=== PATIENT | female | born 1980 | race Caucasian/White ===

== ENCOUNTER → 2023-08-10 | Outpatient (CLI) | payer BC, SELFPAY ==
--- NOTE | 2023-08-10 16:34 | MRI_ITS ---
EXAM: MR LUMBAR SPINE WITHOUT INTRAVENOUS CONTRAST CLINICAL INDICATION: SPINAL STENOSIS, pain wrapping into L ribs TECHNIQUE: Multiplanar and multisequence MR images of the lumbar spine without intravenous contrast. COMPARISON: No relevant prior studies available. FINDINGS: VERTEBRAE: 6 lumbar vertebral bodies are noted. SPINAL CORD: Normal. Normal position and signal intensity of the conus medullaris. SOFT TISSUES: Normal. DISCS/SPINAL CANAL/NEURAL FORAMINA: L1-L2: Normal. Normal disc height and morphology. Normal spinal canal and lateral recesses. Normal neuroforamina. L2-L3: Normal. Normal disc height and morphology. Normal spinal canal and lateral recesses. Normal neuroforamina. L3-L4: Normal. Normal disc height and morphology. Normal spinal canal and lateral recesses. Normal neuroforamina. L4-L5: Normal. Normal disc height and morphology. Normal spinal canal and lateral recesses. Normal neuroforamina. L5-L6: Normal. Normal disc height and morphology. Normal spinal canal and lateral recesses. Normal neuroforamina. L6-S1: Normal. Normal disc height and morphology. Normal spinal canal and lateral recesses. Normal neuroforamina. MRI/Spine Lumbar (Routine) IMPRESSION: No acute findings in the lumbar spine. 6 lumbar vertebral bodies. Electronically Signed: Dimitry Purdy MD at 15:29 EDT ,
== END | disposition home or self-care (01) ==
PROVIDERS: PCP Physician Assistant; Referring Provider Orthopaedic Surgery; Visit Provider Orthopaedic Surgery
DX: M48.061 Spinal stenosis, lumbar region without neurogenic claudication (principal); M47.896 Other spondylosis, lumbar region; M51.36 Other intervertebral disc degeneration, lumbar region
CPT/HCPCS: 72148

== ENCOUNTER → 2023-08-31 | Outpatient (CLI) | payer BC, SELFPAY ==
--- NOTE | 2023-08-31 14:25 | US_ITS ---
EXAM: US SOFT TISSUES HEAD AND NECK, THYROID CLINICAL INDICATION: NODULE TECHNIQUE: Valenzuela scale and color doppler imaging was performed of the thyroid gland. COMPARISON: No relevant prior studies available. FINDINGS: LEFT THYROID LOBE: Left thyroid lobe measures 4.6 x 1.1 x 1.3 cm. 3. 4 mm colloid cysts are noted. Thyroid echogenicity is otherwise uniform and normal. RIGHT THYROID LOBE: Right thyroid lobe measures 3.5 x 1.4 x 1.2 cm. 16 mm spongiform nodule of the right thyroid lobe is wider than tall, well-defined and without microcalcification. TI-RADS points: 2. TI-RADS category: TR2. This nodule is not suspicious and no FNA or follow-up is necessary. ISTHMUS: Isthmus measures 1.5 mm in AP dimension. No thyroid nodules are present. US/Thyroid IMPRESSION: 16mm spongiform right thyroid nodule with TR score of 2. No follow-up indicated. Normal left thyroid gland. Electronically Signed: Dimitry Purdy MD at 15:01 EDT ,
== END | disposition home or self-care (01) ==
PROVIDERS: PCP Physician Assistant; Referring Provider Physician Assistant; Visit Provider Physician Assistant
DX: R59.0 Localized enlarged lymph nodes (principal); E04.1 Nontoxic single thyroid nodule
CPT/HCPCS: 76536

== ENCOUNTER 2023-12-02 16:38 | Emergency (ER) | payer BC, SELFPAY ==
[2023-12-02 16:38] VITALS: BP 148/83; PULSE 71; RESP 16; TEMP 35.8; O2SAT 100; BMI 30.2
--- NOTE | 2023-12-02 17:34 | CT_ITS ---
EXAM: CT ABDOMEN AND PELVIS WITH INTRAVENOUS CONTRAST CLINICAL INDICATION: ruq pain TECHNIQUE: Helically acquired images were obtained of the abdomen and pelvis with intravenous contrast. This CT exam was performed using one or more of the following dose reduction techniques: automated exposure control, adjustment of the mA and/or kV according to patient size, and/or use of iterative reconstruction technique. CONTRAST: IV 75mL [id number] COMPARISON: MRI lumbar spine, 08/10/2023. FINDINGS: LOWER THORAX: Bibasilar pulmonary opacities may be atelectasis or pneumonia. No cardiomegaly. No significant pericardial effusion. ABDOMEN: LIVER: Fatty infiltration of the liver at the falciform ligament and small cysts within the left hepatic lobe for which no follow-up is indicated. Mild hepatomegaly. GALLBLADDER AND BILE DUCTS: The gallbladder is decompressed. No secondary signs of cholecystitis. No intra- or extrahepatic biliary ductal dilation. PANCREAS: No significant abnormality. No focal cystic or solid mass. SPLEEN: No significant abnormality. Normal size without focal cystic or solid mass. ADRENALS: No significant abnormality. No nodules. KIDNEYS AND URETERS: No significant abnormality. Normal renal size and position. No hydronephrosis. STOMACH AND BOWEL: No significant abnormality. No stomach or bowel distention. No focal inflammatory change. PELVIS: APPENDIX: A normal appendix is identified in the right lower quadrant. No secondary signs of appendicitis. BLADDER: No significant abnormality. REPRODUCTIVE: Status post hysterectomy. ABDOMEN and PELVIS: INTRAPERITONEAL SPACE: No significant abnormality. No ascites or other fluid collection. No free air. BONES/JOINTS: See above. SOFT TISSUES: Small fat-containing umbilical hernia. VASCULATURE: No significant abnormality. Abdominal aorta is non-dilated. LYMPH NODES: No significant abnormality. No enlarged lymph nodes. CT/Abdomen/Pelvis W IV Cont ONLY IMPRESSION: 1. Bibasilar pulmonary opacities may be atelectasis or pneumonia. 2. Fatty infiltration of the liver at the falciform ligament and small cysts within the left hepatic lobe for which no follow-up is indicated. 3. Mild hepatomegaly. 4. No evidence of cholecystitis and no evidence of appendicitis. 5. Status post hysterectomy. Electronically Signed: Jorge Alberto Pyle DO at 18:32 EDT ,
--- NOTE | 2023-12-02 17:35 | EDS_ITS ---
HPI HPI - GI History of Present Illness Chief Complaint: Abd Pain Detail of Chief Complaint: Right upper quadrant abdominal pain intermittently for the last 2 weeks. Informant: patient Abdominal Pain/Flank Pain Onset: Weeks Context: Gradual Onset Timing: Intermittent Location: RUQ Current Severity: Mild Maximum Severity: Mild Worsened by: Food Relieved by: Nothing Nausea/Vomiting/Emesis GI Symptom: Negative for Nausea or Vomiting Diarrhea/Melena/Hematochezia GI Symptom: Negative for Diarrhea, Melena or Hematochezia Associated Symptoms Associated Symptoms: Negative for Dysuria, Frequency or Hematuria Narrative Narrative: 43-year-old female no seen past medical history. Prior hysterectomy and C- sections x 2. States 2 weeks ago she had a 2 to 3-day history of right upper quadrant abdominal pain. Denied any other symptoms. Went away. She was not evaluated for. For the last 2 to 3 days she has had the same pain. Right upper quadrant underneath the rib cage. Denies nausea, vomiting, diarrhea or fever. No dysuria. Says if she eats sausage it makes the pain worse. Her sister had to have her gallbladder out. Prior similar symptoms: Yes Recent Illness/Hospitalization: No PFSH PFS Medical History Physical exam, pre-employment Family history of Shelia thyroiditis Abnormal results of thyroid function studies History of gestational diabetes Home Medications ?Medication ?Instructions ?Recorded ?Last Taken ?Type omeprazole 20 mg capsule,delayed 40 mg PO DAILY 01/17/16 01/24/16 10:00 History release sertraline 50 mg tablet 50 mg PO QHS 01/17/16 Unknown History estradiol 1 mg tablet 2 mg (2 x 1 mg) PO DAILY #100 tabs 01/24/16 Unknown Rx albuterol sulfate 90 mcg/actuation 2 puff inhalation Q6H PRN 05/08/19 Unknown History aerosol inhaler levothyroxine 75 mcg tablet 75 mcg PO DAILY #90 tabs 05/08/19 Unknown Rx Allergy/AdvReac Type Severity Reaction Status Date / Time Penicillins Allergy Swelling Verified 12/02/23 16:39 Surgical History H/O total hysterectomy Social History Smoking Status: Former smoker ROS ROS ED ROS Narrative Right upper quadrant abdominal pain denies other complaints. Constitutional Constitutional ED: Denies chills or fever(s) ENT ENT ED: Denies ear pain Cardiovascular Cardiovascular: Denies chest pain Respiratory/Chest Respiratory/Chest: Denies cough Gastrointestinal Gastrointestinal: Reports abdominal pain; Denies constipation, diarrhea, melena, nausea or vomiting Genitourinary Genitourinary ED: Denies dysuria or hematuria Musculoskeletal Musculoskeletal: Denies arthralgias Integumentary Denies abscess Neurologic Neurologic: Denies headache(s) Psychiatric Psychiatric: Denies anxiety Endocrine Endocrinology: Denies polydipsia Hematologic/Lymphatic Hematologic/Lymphatic: Denies easy bleeding Allergic/Immunologic Allergic/Immunologic ED: Denies mouth swelling or tongue swelling EXAM Physical Exam Narrative Exam Narrative: 43-year-old female vital signs are stable afebrile. H EENT exam unremarkable. Neck nontender. Lungs clear. Heart regular rhythm rate about 70 no murmur. Chest wall ribs nontender. Abdomen soft nondistended normal bowel sounds no peritoneal signs. Hide in her right upper quadrant underneath her right rib cage she is mildly tender. No Covarrubias sign. No McBurney's point tenderness the left side her abdomen is completely nontender. No hernia or mass. No distention. Moving all 4 extremities. Nontender no edema. Back nontender. She is awake and alert no focal motor deficits. Const Vital Signs: 12/02/23 16:38 12/02/23 18:38 Temperature 96.5 F L Temperature Source Temporal Pulse Rate 71 71 Respiratory Rate 16 18 Blood Pressure 148/83 H 139/69 H Blood Pressure Mean 104 92 Pulse Ox 100 95 Oxygen Delivery Method Room Air Room Air Positive well nourished and well developed; Negative for cachectic, contractures or unkempt General Appearance ED: well developed and NAD; Negative for unkempt, cachectic, contractures or pallor Nutritional Appearance: Negative for cachectic HEENT Reports moist mucous membranes normocephalic and atraumatic Eyes PERRL and EOMs intact bilaterally General Eye ED: Negative for pale conjunctiva Neck no lymphadenopathy, supple and no JVD Resp normal respiratory effort and clear to auscultation bilaterally Cardio regular rate, regular rhythm, S1 normal heart sound, S2 normal heart sound and no murmurs Rate: Negative for bradycardia or tachycardic Rhythm: Negative for abnormal rhythm GI non-distended and no masses; Negative for non-tender Auscultation: normoactive bowel sounds Palpation: soft and tender; Negative for guarding, rigid, hernia, mass or rebound tenderness present Back/Spine no CVA tenderness General Back: Negative for CVA tenderness Cervical Spine: Negative for cervical spine tenderness Thoracic Spine / Upper Back: Negative for thoracic spinal tenderness Lumbar Spine / Lower Back: Negative for lumbar spinal tenderness Extremity full ROM General Extremety ED: Negative for edema or tenderness General Extremity: Negative for edema Neuro CN's II-XII intact bilaterally and moves all extremities Sensorium / Orientation: alert, oriented to person, oriented to place and oriented to time; Negative for orientation impaired or confused Motor Exam: strength 5/5 throughout Psych mental status grossly normal and thought process normal Appearance: Negative for unkempt Attitude: No agitated Mood & Affect: Negative for depressed, anxious or tearful Skin no wounds General Skin Exam: Negative for jaundice or pallor Lesions: no lesions Rashes: no rashes Trauma: Negative for abrasion Nails: Negative for discolored MDM MDM MDM Narrative Medical decision making narrative: 43-year-old female with right upper quadrant abdominal pain intermittently for 2 weeks. Suspect gallbladder disease. CAT scan labs are pending. She does not want radiating currently for pain or nausea. Repeat exam patient is doing well at 8:25 PM. Abdomen is benign. We went over her test results her labs are normal her CAT scan did not show anything specific. She be discharged home. Follow-up with primary care physician [facility] to get an ultrasound of her gallbladder. She knows to return if she is feeling worse. History & Record Review Discussion w/independent historian: Patient Additional record(s) reviewed:: Prior inpatient record, Prior outpatient record, Prior ED visit and Prior labs Lab Data Attestation: I reviewed the patient's lab results. Lab results narrative: CBC normal. White count of 9. H&H 12 and 37. Platelets 373. Electrolytes shows potassium 3.4. 7. Normal BUN and creatinine. Glucose 101. Liver enzymes completely normal. Lipase 43. CAT scan showed no signs of gallstones or acute cholecystitis or any specific cause for her discomfort. Labs: Laboratory Results - last 24 hr 12/02/23 16:50 WBC 9.6 RBC 4.09 L Hgb 12.6 Hct 37.8 MCV 92.4 MCH 30.8 MCHC 33.3 RDW Std Deviation 40.9 RDW Coeff of Magdalena 12.1 Plt Count 373 MPV 10.4 Immature Gran % (Auto) 0.400 Neut % (Auto) 60.8 Lymph % (Auto) 26.1 [place] % (Auto) 9.4 Eos % (Auto) 2.8 Baso % (Auto) 0.5 Absolute Neuts (auto) 5.9 Absolute Lymphs (auto) 2.51 Nucleated RBC % 0 Sodium 141 Potassium 3.4 L Chloride 108 H Carbon Dioxide 26.0 Anion Gap 7 BUN 9 Creatinine 0.68 Estim Creat Clear Calc 99.10 Est GFR (MDRD) Af Amer 119 Est GFR (MDRD) Non-Af 98 BUN/Creatinine Ratio 13.1 Glucose 101 Calcium 8.7 Total Bilirubin 0.50 AST 21 ALT 26 Alkaline Phosphatase 97 Total Protein 7.2 Albumin 3.4 Globulin 3.8 Albumin/Globulin Ratio 0.9 Lipase 43 Radiography Diagnostic Testing: Clinical Impression(s) from Imaging Studies Abdomen/Pelvis CT 12/02/23 17:34 IMPRESSION: 1. Bibasilar pulmonary opacities may be atelectasis or pneumonia. 2. Fatty infiltration of the liver at the falciform ligament and small cysts within the left hepatic lobe for which no follow-up is indicated. 3. Mild hepatomegaly. 4. No evidence of cholecystitis and no evidence of appendicitis. 5. Status post hysterectomy. Electronically Signed: Jorge Alberto Pyle DO at 18:32 EDT , Discharge Plan Triage Chief Complaint: Abd Pain ED Provider: Bishnu Barney Dx/Rx/DC Orders Clinical Impression: Abdominal pain Instructions: ED Abdominal Pain Unkn Cause Fem Prescriptions: No Action albuterol sulfate 90 mcg/actuation HFA aerosol inhaler 2 puff INHALATION Q6H PRN levothyroxine 75 mcg tablet 75 mcg PO DAILY Qty: 90 1RF omeprazole 20 MG capsule 40 mg PO DAILY Patient Comments: GERD sertraline 50 MG tablet 50 mg PO QHS Patient Comments: Depression/Anxiety estradiol 1 MG tablet 2 mg PO DAILY Qty: 100 4RF Patient Comments: Estrogen Primary Care Provider: Tyesha Hong Referrals: Tyesha Hong, JASON [Primary Care Provider] - As soon as possible Activity Restrictions/Additional Instructions: Your CAT scan and labs were unremarkable today. This still could be your gallbladder. Follow-up your primary care physician they can do an ultrasound your gallbladder. Tylenol and/or Motrin for discomfort. Return if severe pain, fever or intractable vomiting. Print Language: Maldivian Disposition Disposition: Home, Self Care
[2023-12-02 17:47] LABS: Absolute Lymphocyte Count 2.51 X10^3/uL (0.83-4.51); Absolute Neutrophil Count 5.9 X10^3/uL (2.0-7.7); Basophil# 0.05 X10^3/uL; Basophil% 0.5 % (0-1); Eosinophil# 0.27 X10^3/uL; Eosinophils% 2.8 % (0-5); Hematocrit 37.8 % (37-47); Hemoglobin 12.6 g/dL (12.0-15.0); Lymphocyte # 2.51 X10^3/ul (0.83-4.51); Lymphocyte % 26.1 % (19-41); Mean Corp Hgb Conc 33.3 g/dL (32-36); Mean Corpuscular Hgb 30.8 pg (27.0-32.0); Mean Corpuscular Volume 92.4 fL (81-99); Mean Platelet Vol. 10.4 fl (6.2-12.0); Monocyte% 9.4 % (0-10); NRBC Flagged by Analyzer 0 % (0-5); Neutrophil # 5.85 X10^3/uL (2.7-7.7); Neutrophil % 60.8 % (47-70); Platelet Count 373 K/mm3 (150-450); RBC Distribution Width CV 12.1 % (11.6-14.6); RBC Distribution Width SD 40.9 fl (35.1-43.9); Red Blood Count 4.09 M/mm3 (4.2-5.4); White Blood Count 9.6 K/mm3 (4.4-11.0)
[2023-12-02 18:09] LABS: ALB/GLOB Ratio 0.9 RATIO (0.9-2.4); AST(SGOT) 21 U/L (15-37); Alanine Aminotransfer ALT/SGPT 26 U/L (13-56); Albumin, Serum 3.4 g/dL (3.2-5.0); Alkaline Phosphatase 97 U/L (45-117); Anion Gap 7 (5-15); BUN 9 mg/dL (7-18); BUN/Creat Ratio 13.1 RATIO (10-20); Calcium,Total 8.7 mg/dL (8.5-10.1); Chloride 108 mmol/L (98-107); Creatinine, Serum 0.68 mg/dL (0.55-1.02); EST Glomerular Filtration Rate 98 mL/min (>60); Est Glom Filt Rate - Afr Amer 119 mL/min (>60); Globulin 3.8 g/dL (2.2-4.2); Glucose 101 mg/dL (74-106); Lipase 43 U/L (13-75); Potassium 3.4 mmol/L (3.5-5.1); Protein, Total 7.2 g/dL (6.4-8.2); Sodium Level 141 mmol/L (136-145)
[2023-12-02 18:38] VITALS: BP 139/69; PULSE 71; RESP 18; O2SAT 95
[2023-12-02 20:00] VITALS: BP 144/77; PULSE 61; RESP 16; O2SAT 94
[2023-12-02 20:28] VITALS: BP 144/77; PULSE 63; RESP 16; TEMP 36.8; O2SAT 94
== END 2023-12-02 20:34 | disposition home or self-care (01) ==
PROVIDERS: Emergency Provider Emergency Medicine; PCP Physician Assistant; Visit Provider Emergency Medicine
DX: R10.11 Right upper quadrant pain (principal); Z87.891 Personal history of nicotine dependence; Z90.710 Acquired absence of both cervix and uterus
CPT/HCPCS: 74177; 80053; 83690; 85025; 99282; Q9967; A4216

== ENCOUNTER 2023-12-21 09:37 | Day surgery (SDC) | payer BC, SELFPAY ==
[2023-12-21] VITALS (14 sets, daily range): BP systolic 112–147; BP diastolic 57–104; PULSE 54–96; RESP 16–17; TEMP 36.2–36.7; O2SAT 92–97; BMI 32.1
--- NOTE | 2023-12-21 09:52 | EKG12_ITS ---
Test Reason : PREOP Blood Pressure : / mmHG Vent. Rate : 048 BPM Atrial Rate : 048 BPM P-R Int : 122 ms QRS Dur : 092 ms QT Int : 486 ms P-R-T Axes : 034 036 025 degrees QTc Int : 434 ms Sinus bradycardia Otherwise normal ECG No previous ECGs available Confirmed by Leland Garcia ([id number]), multimedia editor ANGY MARIN ([id number]) on 12/26/2023 2:03:45 PM Referred By: Sy Knight Confirmed By:Leland Garcia
[2023-12-21] MEDS: Lactated Ringers 1,000 ML 15 ML IV (10:00)
--- NOTE | 2023-12-21 10:11 | PRE.ANES_ITS ---
ASA Classification* ASA Classification ASA Classification: 2 Assessment & Plan Anesthesia* Anesthesia Assessment Anesthesia Assessment: Discussed sedation and/or anesthesia options, risks, benefits, and alternatives with patient/parents/legal guardian/POA. Questions invited. The patient/parents/legal guardian/POA seems to understand and agrees to proceed with anesthesia plan. Reviewed the physical assessment, medical history, allergy history and patient home medications list prior to surgery/procedure/anesthetic and documented any changes. Performed airway and anesthesia risk assessments. Anesthesia Type Anesthesia Type: General (see written pre anesthesia record for full assessment) Anesthesia Focused Assessment* Airway Assessment Mouth opens: >3 cm Mallampati Score: II Focused Labs Anesthesia Preop lab: CBC WBC 9.6 K/mm3 (4.4-11.0) 12/02/23 16:50 RBC 4.09 M/mm3 (4.2-5.4) L 12/02/23 16:50 Hgb 12.6 g/dL (12.0-15.0) 12/02/23 16:50 Hct 37.8 % (37-47) 12/02/23 16:50 Plt Count 373 K/mm3 (150-450) 12/02/23 16:50 CHEMISTRY Potassium 3.4 mmol/L (3.5-5.1) L 12/02/23 16:50 Sodium 141 mmol/L (136-145) 12/02/23 16:50 BUN 9 mg/dL (7-18) 12/02/23 16:50 Creatinine 0.68 mg/dL (0.55-1.02) 12/02/23 16:50 Glucose 101 mg/dL (74-106) 12/02/23 16:50 TSH Pending 12/21/23 10:05 COAG PT 13.1 SECONDS (11.7-14.9) 01/10/16 14:45 Urine Test Negative Negative 01/24/16 10:10 Pre-Assessment Diagnosis/Proposed Procedure Planned Operative Procedure(s): LAP CROW WITH GRAMS Anesthesia History 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 When Was Last Pacemaker Check QUESTION #4 FULL TEXT: You/Your Family Experience fever (hyperthermia) with Anesthesia Last Oral Intake Last Oral intake: Last Oral Intake NPO since Meds taken in AM with sips of water? 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 Female Yes 12/18/23 15:34 HX of Motion Sickness No 12/18/23 15:34 HX of N/V After Surgery No 12/18/23 15:34 Non-Smoker Yes 12/18/23 15:34 Duration of Surgery greater Yes 12/18/23 15:34 than 60 minutes Number of Risk Factors 3 12/18/23 15:34 PONV Score Moderate Risk 12/18/23 15:34 Height & Weight Height & Weight: Anesthesia: Height & Weight Height 5 ft 12/14/23 15:08 Respiratory Assessment Respiratory Assessment - quilting machine operator: Respiratory Tract Infection Hx - quilting machine operator Hx Respiratory Tract Infection Yes: PNEUMONIA/TREATED/ 12/18/23 15:34 REVOLING STOP Sleep Apnea STOP Sleep Apnea - quilting machine operator: STOP Sleep Apnea - quilting machine operator Hx Hypertension No 12/18/23 15:34 Hx Sleep Apnea No 12/18/23 15:34 CPAP BIPAP Do you snore loudly (louder Yes 12/18/23 15:34 than talking or can be heard Do you often feel tired/ No 12/18/23 15:34 fatigued/ sleepy during daytime? Has anyone observed you stop No 12/18/23 15:34 breathing during sleep? STOP Results Negative 12/18/23 15:34 QUESTION #5 FULL TEXT : Do you snore loudly (louder than talking or can be heard through closed doors)? 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 Specify any problems Hx of Preganancy in last 3 No 12/18/23 15:34 Months Nurse Filling Out Transfusion DSCHRIBER 12/18/23 15:34 & Questions: Date: 12/18/23 12/18/23 15:34 Time: 15:36 12/18/23 15:34 Patient unable to answer at this time (ie. 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: /Reproductive Hx- quilting machine operator Hx Now No 12/18/23 15:34 Gestational Age (in weeks): EDC: Hx Hx Para Hx Section SAB No 12/18/23 15:34 Active Medications Active Medications: Current Medications Generic Name Dose Route Start Last Admin Trade Name Freq PRN Reason Stop Dose Admin Lactated Ringer's 1,000 mls @ 15 mls/hr 12/21/23 10:00 IV 12/26/23 23:19 .Q48H [facility] Protocol PFSH Medical History (Updated 12/18/23 @ 15:42 by Maddy Jon) Gastric reflux Anxiety Alcohol use Thyroid disease Fatty liver Restless legs Injury of head and neck Non-smoker Asthma Shortness of breath on exertion Leg cramps Physical exam, pre-employment Family history of Shelia thyroiditis Abnormal results of thyroid function studies History of gestational diabetes Home Medications ?Medication ?Instructions ?Recorded ?Last Taken ?Type sertraline 50 mg tablet 50 mg PO QHS 01/17/16 Unknown History estradiol 1 mg tablet 2 mg (2 x 1 mg) PO DAILY #100 tabs 01/24/16 Unknown Rx albuterol sulfate 90 mcg/actuation 2 puff inhalation Q6H PRN 05/08/19 Unknown History aerosol inhaler shortness of breath or wheezing levothyroxine 75 mcg tablet 75 mcg PO DAILY #90 tabs 05/08/19 Unknown Rx famotidine 20 mg tablet (Acid 20 mg PO DAILY PRN GERD 12/18/23 Unknown 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
--- NOTE | 2023-12-21 11:29 | HP.PCM_ITS ---
HPI - General General Date of Admission: 12/21/23 Date of Service: 12/21/23 Chief Complaint: Right upper quadrant abdominal pain HPI Narrative NATHAN ZAMORA, is a 43 F who presents for elective laparoscopic cholecystectomy. Was recently found to have right upper quadrant pain thought to be biliary colic in nature [facility] Medical History Gastric reflux Anxiety Alcohol use Thyroid disease Fatty liver Restless legs Injury of head and neck Non-smoker Asthma Shortness of breath on exertion Leg cramps Physical exam, pre-employment Family history of Shelia thyroiditis Abnormal results of thyroid function studies History of gestational diabetes Home Medications ?Medication ?Instructions ?Recorded ?Last Taken ?Type sertraline 50 mg tablet 50 mg PO QHS 01/17/16 Unknown History estradiol 1 mg tablet 2 mg (2 x 1 mg) PO DAILY #100 tabs 01/24/16 Unknown Rx albuterol sulfate 90 mcg/actuation 2 puff inhalation Q6H PRN 05/08/19 Unknown History aerosol inhaler shortness of breath or wheezing levothyroxine 75 mcg tablet 75 mcg PO DAILY #90 tabs 05/08/19 Unknown Rx famotidine 20 mg tablet (Acid 20 mg PO DAILY PRN GERD 12/18/23 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)) Allergy/AdvReac Type Severity Reaction Status Date / Time Penicillins Allergy Swelling Verified 12/18/23 15:32 Surgical History Hx of laparoscopy History of H/O total hysterectomy Social History Smoking Status: Never smoker Vital Signs Vital Signs Vital Signs: 12/21/23 10:11 12/21/23 10:11 Temperature 97.6 F L Temperature Source Temporal Pulse Rate 54 L Respiratory Rate 17 Respiratory Pattern Normal Blood Pressure 130/79 H Blood Pressure Mean 96 Blood Pressure Source Monitor Blood Pressure Position Semi-Fowlers Blood Pressure Location Left Arm Pulse Ox 97 Oxygen Delivery Method Room Air Weight Weight: 175 lb 14.862 oz Body Mass Index (BMI) 32.1 Physical Exam Narrative She is alert and oriented x 3. No acute distress. Head is normocephalic and atraumatic. Pupils are equal round and reactive to light. Abdomen is soft nontender nondistended. Results Lab / Micro Data Labs: Laboratory Results - last 24 hr 12/21/23 10:05: TSH 1.490 Assessment & Plan Assessment/Plan (1) Biliary colic: PLAN: Plan Laparoscopic cholecystectomy with intraoperative cholangiograms today. We discussed the details of the planned procedure and she wishes to proceed. Charges/Coding Visit Charges Inpatient E&M: 97281 Init Hosp L1
--- NOTE | 2023-12-21 11:30 | GALL_PTH ---
PATIENT: NATHAN ZAMORA LOC: [facility] [place] U#:[id number] AGE/SX: 43/F ROOM: RE12/21/[address]: Dr. Sy Knight MD : 1980 BED: DIS: 12/21/2023 SPEC #: [id number] RECD: 12/21/23 16:48 STATUS: SHERIF REMarina #: [id number] MEGGAN: 12/21/23 11:[address]: Sy Knight DEPT: SURGICAL PATHOLOGY RECD BY: Tracey Martini ENTERED: 12/24/23 08:22 SP TYPE: SANTI ALMODOVAR DR: JASON Myers Tissues: Gallbladder, NOS Procedures: Surgery Specimen Level III HEADER OPERATION: Laparoscopic, cholecystectomy PRE-OP DIAGNOSIS: Biliary colic TISSUE SUBMITTED: Gallbladder and contents MICROSCOPIC DIAGNOSIS Gallbladder, cholecystectomy: Chronic cholecystitis. See beatris. 12/25/2023 COMMENT No stones are identified in the gallbladder or in the container. MICROSCOPIC DESCRIPTION Slides are reviewed. GROSS DESCRIPTION Received is one container labeled with the patient's name and designated gallbladder. The specimen consists of a gallbladder measuring 5.5 cm in length and up to 2.5 cm in diameter. The external surface is pink-zuleta, smooth and glistening for the most part. Focally it is granular, hemorrhagic and contains cautery artifact. The gallbladder contains green-yellow mucoid bile. No stones are identified in the container or in the gallbladder. The mucosa is bile-stained and without any mass lesions. The gallbladder wall measures up to 0.2 cm in thickness. Petroleum Sampler sections from the gallbladder and the cystic duct are submitted in one cassette. / SJ:mr 12/24/2023 CPT: 41789 TC:3
[2023-12-21] MEDS: Bupiv/Epi 0.25% 30 ML Vial (12:21)
--- NOTE | 2023-12-21 12:30 | DCINST_ITS ---
Discharge Instructions Diet Discharge Diet: Light diet - advance as tolerated Activity Discharge Activity: May Shower Lifting Restrictions: no lifting over 20 pounds for 3-4 weeks Dressing / Incision Call your doctor if your incision/area has: Continuous Slow Oozing, Sudden Increased Bleeding, Increased Pain/ Swelling, Increased Redness, Foul Smelling Discharge and Swelling at the incision site Call your doctor if you observe: Fever of 101 or Higher and Change in Color Cleanse incision/area with: Soap & Water Follow Up Care Please Follow Up With: Sy Knight MD When: 2 weeks Test Results: Test results from this visit will be discussed in further detail at your follow- up appointment, if applicable. Discharge Plan Admission Primary Reason for Your Visit: gallbladder surgery Attending Provider: Sy Knight Primary Care Provider: Tyesha Hong Instructions Print Language: Sinhala Discharge Orders/Prescriptions Prescriptions: New oxycodone-acetaminophen [Percocet] 5-325 mg tablet 1 tab PO Q8H PRN (Reason: pain) 3 Days Qty: 10 0RF Continued albuterol sulfate 90 mcg/actuation HFA aerosol inhaler 2 puff INHALATION Q6H PRN (Reason: shortness of breath or wheezing) levothyroxine 75 mcg tablet 75 mcg PO DAILY Qty: 90 1RF sertraline 50 MG tablet 50 mg PO QHS Patient Comments: Depression/Anxiety estradiol 1 MG tablet 2 mg PO DAILY Qty: 100 4RF Patient Comments: Estrogen famotidine [Acid Electric Clock Mechanic (famotidine)] 20 mg tablet 20 mg PO DAILY PRN (Reason: GERD) Referrals / Follow Up: Tyesha Hong PA [Primary Care Provider] - Disposition Disposition (needs filled in before D/C Order can be placed): Home, Self Care
--- NOTE | 2023-12-21 12:46 | OP.PCM_ITS ---
Problems Associated Problem List Diagnoses (1) Biliary colic: Report of Operation Date of Procedure: 12/21/23 Pre-Operative Diagnosis: Biliary colic Post-Operative Diagnosis: Biliary colic Surgery/Procedure Performed:: Laparoscopic cholecystectomy with attempted cholangiograms Surgeon: Sy Knight assistant general manager: TREMAINE DUENAScereal chemist Type of Anesthesia: General Anesthesiologist: To Metcalf Specimen's removed: Gallbladder Drains: None Estimated Blood Loss (mL): Minimal Description of Procedure: The patient is a 43-year-old female recently seen through the office with right upper quadrant that seem to be worse after eating. She had some sludge in her gallbladder on ultrasound but no obvious stones. Her symptoms were very classic for biliary colic in terms of their location and association with fatty food. We discussed options of working up the gallbladder further with a HIDA scan versus proceeding directly to surgery. We mutually decided to proceed with surgery since her symptoms were quite problematic for her and her daily functioning. We discussed the details of the planned laparoscopic cholecystectomy. We discussed the details of the planned procedure including the risks benefits and alternatives. She wished to proceed. She was brought to the operating room today following informed consent. She was placed supine on the operative table with arms outstretched on arm boards. General anesthesia was induced. Once adequately sedated the abdomen is then prepped and draped in the usual sterile manner. A 5 mm trocar was placed at the the umbilicus by first making an incision with a #15 blade. The 5 mm trocar was placed optically. This was done without difficulty. The abdomen is then fully insufflated with CO2 gas. A 5 mm 0 degree scope was inserted there were no signs of bowel or vascular injury. Next two 5 mm trocars were placed under direct visualization in the right upper quadrant and a 10 mm trocar was placed in the epigastric area. All of these were placed under direct visualization and without incident. The patient was then positioned with some head up and rolled to the left to improve exposure to the gallbladder. She had a fairly large floppy liver. The gallbladder was identified and was reflected in a cephalad direction. There was minimal fat overlying the infundibulum of the gallbladder. The peritoneum on either side the gallbladder was taken down using Bovie electrocautery and a J-hook. This was carried across the infundibulum. The cystic duct and cystic artery were both dissected out circumferentially. This was performed using a [place] dissector. There appeared to be 2 and only 2 structures going to the gallbladder in this region thus confirming a critical view of safety. The cystic duct was clipped first close this to the gallbladder using a Weck clip.. I then made a small ductotomy. The cystic duct was actually of very small caliber. I attempted several times to thread the cholangiogram catheter into the ductotomy but was unsuccessful at getting this to pass. I was very confident of the anatomy and she was negative on ultrasound for any stones and so we decided to forego cholangiography. The cystic duct was then clipped 3 times with a 10 mm clip group insurance specialist and then transected. The cystic artery was then clipped twice proximally and once distally and this too was then transected using scissors the gallbladder was then easily removed from the liver bed using Bovie electrocautery and the J-hook. Once the specimen was free was placed into a bag and brought out through the 10 mm trocar site. The trocar was replaced. The liver bed was then examined and a couple areas were cauterized to ensure excellent hemostasis. There were no signs of bowel or vascular injury or other evidence of complication at the completion of the surgery. All counts were correct. The fascia at the 10 mm trocar site was closed using 0 PDS with the aid of a fascial closure device. This closed the fascia nicely. The remaining trocars were opened up. Local anesthetic was injected each incisions the incisions were then closed with 5-0 Vicryl. Skin glue was applied as dressing. She was awakened from anesthesia and taken the PACU in good condition. Complications None Admit VTE Documentation VTE Present on Admission: No VTE Mechan Device Prophylaxis: SCD's Procedures Digestive 40xxx-49xxx: 11188 Laparoscopic cholecystectomy
--- NOTE | 2023-12-21 12:46 | PCM.POST.ANE ---
Anesthesia: Postop Eval I Current Vital Signs Temperature: 97.1 F Pulse Rate: 96 Blood Pressure: 147/70 Respiratory Rate: 16 Pulse Ox: 96 Oxygen Delivery Method: Room Air Assessment Airway patent: Yes Spontaneous unlabored respirations: Yes Mental status: Awake and Calm nausea: No Vomiting: No Anesthesia Complication: No Fluid Hydration Crystalloid volume administer (ml): 600 Total IV fluid infused: 600 Progress Note Anesthesia document: Postop Eval 1 completed: Yes
--- NOTE | 2023-12-21 13:53 | POSTOPAN2_ITS ---
Anesthesia Postop Eval I Sum Postop Eval Completion status Anesthesia document: Postop Eval 1 completed: Yes Anesthesia Postop Eval I Summary Anesthesia Postop Eval I Summary: Anesthesia Postop Eval I: Assessment Summary Airway patent Yes 12/21/23 12:47 [email or web address] Spontaneous unlabored Yes 12/21/23 12:47 [email or web address] respirations Mental status Awake,Calm 12/21/23 12:47 [email or web address] nausea No 12/21/23 12:47 [email or web address] Vomiting No 12/21/23 12:47 [email or web address] Anesthesia Postop Eval I: Fluid Summary Crystalloid volume administer 600 12/21/23 12:47 [email or web address] (ml) Colloids volume administered ( ml) Blood Product volume administered (ml) Total IV fluid infused 600 12/21/23 12:47 [email or web address] Anesthesia Postop Eval I: Summary Notes Anesthesia Complication No 12/21/23 12:47 [email or web address] Anesthesia Complication Comment: Post-operative progress note Anesthesia: Postop Eval II Evaluation Mental status: Awake Pain Level: 0 nausea: No Vomiting: No
--- NOTE | 2023-12-21 13:53 | PCM.POSTANE2 ---
Anesthesia Postop Eval I Sum Postop Eval Completion status Anesthesia document: Postop Eval 1 completed: Yes Anesthesia Postop Eval I Summary Anesthesia Postop Eval I Summary: Anesthesia Postop Eval I: Assessment Summary Airway patent Yes 12/21/23 12:47 [email or web address] Spontaneous unlabored Yes 12/21/23 12:47 [email or web address] respirations Mental status Awake,Calm 12/21/23 12:47 [email or web address] nausea No 12/21/23 12:47 [email or web address] Vomiting No 12/21/23 12:47 [email or web address] Anesthesia Postop Eval I: Fluid Summary Crystalloid volume administer 600 12/21/23 12:47 [email or web address] (ml) Colloids volume administered ( ml) Blood Product volume administered (ml) Total IV fluid infused 600 12/21/23 12:47 [email or web address] Anesthesia Postop Eval I: Summary Notes Anesthesia Complication No 12/21/23 12:47 [email or web address] Anesthesia Complication Comment: Post-operative progress note Anesthesia: Postop Eval II Evaluation Mental status: Awake Pain Level: 0 nausea: No Vomiting: No
[2023-12-21] MEDS: oxyCODONE 5 MG Tablet PO (14:19)
[2023-12-21] MEDS: Acetaminophen 325 MG Tablet PO (14:19)
== END 2023-12-21 15:02 | disposition home or self-care (01) ==
LOC: SDC 09:37 → AC 09:39
PROVIDERS: Anesthesiology; PCP Physician Assistant; Referring Provider Surgery; Visit Provider Surgery
PROC: (CPT 47610; principal; 2023-12-21 11:10)
DX: K80.50 Calculus of bile duct without cholangitis or cholecystitis without obstruction (principal); Z90.710 Acquired absence of both cervix and uterus; K83.8 Other specified diseases of biliary tract; Z83.49 Family history of other endocrine, nutritional and metabolic diseases; F41.9 Anxiety disorder, unspecified
CPT/HCPCS: 47562; 00790; 84443; 88304; 93005; J7120; C1769; J2405

== ENCOUNTER 2025-01-20 09:31 | Emergency (ER) | payer BC, SELFPAY ==
[2025-01-20 09:32] VITALS: BP 140/85; PULSE 77; RESP 18; TEMP 36.9; O2SAT 100; BMI 30.4
--- NOTE | 2025-01-20 10:22 | EX.ED.DYSGE1 ---
HPI History of Present Illness Chief Complaint: Abd Pain Narrative Narrative: Patient is a 44-year-old female with past medical history of GERD, alcohol use, fatty liver, asthma, hypothyroidism, status post total hysterectomy, status post cholecystectomy who presented to the emergency department the chief complaint of abdominal pain. She states that she has had this occur off and on however she states that this occurred again last night and felt that the pain was severe. States that she set to follow-up with gastroenterology's to see if they can find out what is causing her symptoms. She states that she got home from work when the pain started and notes that nothing in particular will set this off. She states that she has not any blood in her stool no black stools. [facility] Medical History Gastric reflux Anxiety Alcohol use Thyroid disease Fatty liver Restless legs Injury of head and neck Non-smoker Asthma Shortness of breath on exertion Leg cramps Physical exam, pre-employment Family history of [place] thyroiditis Abnormal results of thyroid function studies History of gestational diabetes Home Medications Medication Instructions Recorded Last Taken Type levothyroxine 75 mcg tablet 75 mcg PO DAILY #90 tabs 05/08/19 Unknown Rx famotidine 20 mg tablet (Acid 20 mg PO DAILY PRN GERD 12/18/23 Unknown History It Professional (famotidine)) albuterol sulfate 90 mcg/actuation 2 puff inhalation Q6H PRN PRN 01/20/25 Unknown History aerosol inhaler dyspnea dicyclomine 20 mg tablet 20 mg PO TID PRN abdominal pain 01/20/25 Unknown Rx #20 tabs estradiol 1 mg tablet 1 mg PO DAILY 01/20/25 Unknown History ondansetron 4 mg disintegrating 4 mg PO Q6H PRN nausea and 01/20/25 Unknown Rx tablet vomiting #30 tabs Allergy/AdvReac Type Severity Reaction Status Date / Time Penicillins Allergy Swelling Verified 01/20/25 09:32 Surgical History S/P cholecystectomy Hx of laparoscopy History of H/O total hysterectomy Social History Smoking Status: Former smoker alcohol intake: current alcohol intake frequency: a few times a month Alcohol type: beer ROS ROS ED ROS Narrative Constitutional: Denies any fevers, chills, headaches Eyes: Denies changes in vision Cardiovascular: Denies chest pain Respiratory: Denies shortness of breath Abdomen: Complains of abdominal pain on the right side below her rib cage denies nausea vomiting diarrhea : Denies urinary symptoms Neurological: Denies any numbness, weakness, tingling Musculoskeletal: Denies back pain Skin: Denies any rashes or lesions EXAM Physical Exam Narrative Exam Narrative: General: Patient lying in bed rest comfortably did not appear to be in acute distress Head: Atraumatic, normocephalic Eyes: PERRL bilaterally, EOMI bilaterally, no conjunctival injection noted Neck: Soft, supple, trachea midline Cardiovascular: Regular rate and rhythm Respiratory: Clear to auscultation bilaterally Abdomen: Soft, nondistended, no tenderness to palpation no rebound or guarding on exam Musculoskeletal: No tenderness to palpation of the rib cage Extremities: +5/5 strength in the bilateral lower extremities Neurological: Patient follow commands knew that she was at [facility] years 2024 Skin: Warm, dry, tact no rashes or lesions noted Const Vital Signs: 01/20/25 09:32 Temperature 98.5 F Temperature Source Oral Pulse Rate 77 Respiratory Rate 18 Blood Pressure 140/85 H Blood Pressure Mean 103 Pulse Ox 100 MDM MDM MDM Narrative Medical decision making narrative: Patient is a 44-year-old female who presented to the emergency department with a chief complaint of abdominal pain on the right side. On the differential diagnosis includes but not limited to choledocholithiasis, pancreatitis, peptic ulcer disease, viral gastroenteritis. Once workup is obtained reviewed she will be reevaluated. [place] Score (Revised) for Pulmonary Embolism from [email or web address] on 01/20/2025 All calculations should be rechecked by clinician prior to use RESULT SUMMARY: 3 points Low risk group: 7-9% incidence of PE from several studies. INPUTS: Age >65 —> 0 = No Previous DVT or PE —> 0 = No Surgery (under general anesthesia) or lower limb fracture in past month —> 0 = No Active malignant condition —> 0 = No Unilateral lower limb pain —> 0 = No Hemoptysis —> 0 = No Heart rate —> 3 = 75-94 Pain on lower limb palpation and unilateral edema —> 0 = No Patient CBC reviewed and showed no evidence leukocytosis works: 7.1, heme was 13.4, plate count was noted to be normal at 333. Patient sodium is 141, potassium of 4, creatinine was 0.61. Patient AST and ALT are 2724 respectively lipase normal at 26. Patient urinalysis reviewed showed no evidence of infection. On reevaluation the patient at 11:35 AM her abdomen remains benign at this point time do not believe she warrants any further imaging. I discussed this with her and she is comfortable with this plan. She is advised to follow-up with gastroenterology which she was referred to Dr. Rivas. She will given prescription for Bentyl and Zofran. She is vies return with worsening symptoms or concerns. She is agreeable this plan all question concerns answered she was discharged home in stable condition Lab Data Labs: Laboratory Results - last 24 hr 01/20/25 01/20/25 10:28 10:30 WBC 7.1 RBC 4.46 Hgb 13.4 Hct 40.7 MCV 91.3 MCH 30.0 MCHC 32.9 RDW Std Deviation 41.1 RDW Coeff of Magdalena 12.5 Plt Count 333 MPV 10.1 Immature Gran % (Auto) 0.300 Neut % (Auto) 64.1 Lymph % (Auto) 24.6 [place] % (Auto) 8.4 Eos % (Auto) 2.2 Baso % (Auto) 0.4 Absolute Neuts (auto) 4.6 Absolute Lymphs (auto) 1.76 Nucleated RBC % 0 Sodium 141 Potassium 4.0 Chloride 108 Carbon Dioxide 24.3 Anion Gap 8 BUN 13 Creatinine 0.61 L Estim Creat Clear Calc 109.61 Est GFR (MDRD) Non-Af 112 BUN/Creatinine Ratio 20.5 H Glucose 99 Calcium 8.7 Total Bilirubin 0.50 AST 27 ALT 24 Alkaline Phosphatase 86 Total Protein 6.1 Albumin 3.8 Globulin 2.2 Albumin/Globulin Ratio 1.7 Lipase 26 Urine Color Yellow Urine Clarity Clear Urine pH 6.0 Ur Specific [place] 1.020 Urine Protein 15 H Urine Glucose (UA) Normal Urine Ketones Negative Urine Occult Blood Negative Urine Nitrite Negative Urine Bilirubin Negative Urine Urobilinogen Normal Ur Leukocyte Esterase Negative Urine RBC 0 SEEN Urine WBC 0 SEEN Ur Squamous Epith Cells 0-5 SEEN Urine Bacteria 1+ Urine Mucus 1+ Discharge Plan Triage Chief Complaint: Abd Pain ED Provider: Brenden Jacobs Dx/Rx/DC Orders Clinical Impression: Abdominal pain, S/P cholecystectomy, History of gastroesophageal reflux (GERD) Prescriptions: New dicyclomine 20 mg tablet 20 mg PO TID PRN (Reason: abdominal pain) Qty: 20 0RF ondansetron 4 mg tablet,disintegrating 4 mg PO Q6H PRN (Reason: nausea and vomiting) Qty: 30 0RF No Action levothyroxine 75 mcg tablet 75 mcg PO DAILY Qty: 90 1RF estradiol 1 MG tablet 1 mg PO DAILY Patient Comments: Estrogen albuterol sulfate 90 mcg/actuation HFA aerosol inhaler 2 puff inhalation Q6H PRN PRN (Reason: dyspnea) famotidine [Acid It Professional (famotidine)] 20 mg tablet 20 mg PO DAILY PRN (Reason: GERD) Primary Care Provider: Tyesha Hong Referrals: Ramón Rivas DO [Med Staff - Active Staff, Gastroenterology] Tyesha Hong PA [Primary Care Provider, Medical] Activity Restrictions/Additional Instructions: Your blood work did not show any acute findings today. Follow-up with gastroenterology in the outpatient setting. Use prescriptions are sent to pharmacy as prescribed. Return with worsening symptoms or other concerns Print Language: Prydeinig Disposition Disposition: Home, Self Care
[2025-01-20] MEDS: 0.9% Normal Saline (1000mL) 1,000 ML 999 ML IV (10:30)
[2025-01-20 10:36] LABS: Red Blood Cells-Urine 0 SEEN /hpf (0-5)
[2025-01-20 10:47] LABS: Color, Urine Yellow (Yellow); Glucose, Dipstick Normal (Normal); Ketone-Dipstick Negative (Negative); Leukocyte Esterase-Dipstick Negative /ul (Negative); Nitrite-Dipstick Negative (Negative); Occult Blood-Urine Negative /ul (Negative); Protein-Dipstick 15 mg/dl (Negative); Specific Gravity, Urine 1.020 (1.002-1.030); Urine Bilirubin Dipstick Negative (Negative)
[2025-01-20 10:48] LABS: Hematocrit 40.7 % (37-47); Hemoglobin 13.4 g/dL (12.0-15.0); Immature Granulocytes Count 0.020 X10^3/uL (0.0-0.0); Mean Corp Hgb Conc 32.9 g/dL (32-36); Mean Corpuscular Volume 91.3 fL (81-99); Mean Platelet Vol. 10.1 fl (6.2-12.0); NRBC Flagged by Analyzer 0 % (0-5); Platelet Count 333 K/mm3 (150-450); RBC Distribution Width CV 12.5 % (11.6-14.6); RBC Distribution Width SD 41.1 fl (35.1-43.9); Red Blood Count 4.46 M/mm3 (4.2-5.4); White Blood Count 7.1 K/mm3 (4.4-11.0)
[2025-01-20 10:52] LABS: Squamous Epithelial Cells - UA 0-5 SEEN /hpf (5-10)
[2025-01-20 10:54] LABS: Mucous, Urine 1+ /hpf (<or=2+)
[2025-01-20 10:56] LABS: AST(SGOT) 27 U/L (<=31); Alanine Aminotransfer ALT/SGPT 24 U/L (<=34); Albumin, Serum 3.8 g/dL (3.5-5.0); Alkaline Phosphatase 86 U/L (35-104); Anion Gap 8 (5-15); BUN 13 mg/dL (4-19); BUN/Creat Ratio 20.5 RATIO (10-20); Calcium,Total 8.7 mg/dL (7.6-11.0); Carbon Dioxide 24.3 mmol/L (21.0-32.0); Chloride 108 mmol/L (98-108); Estimated Creatinine Clearance 109.61 ml/min (50-250); Globulin 2.2 g/dL (2.2-4.2); Glucose 99 mg/dL (70-99); Lipase 26 U/L (13-75); Potassium 4.0 mmol/L (3.3-5.1)
[2025-01-20 11:32] VITALS: PULSE 71; RESP 16; O2SAT 98
[2025-01-20 12:32] VITALS: BP 140/85; PULSE 71; RESP 16; TEMP 36.9; O2SAT 98
== END 2025-01-20 12:25 | disposition home or self-care (01) ==
PROVIDERS: Emergency Provider Emergency Medicine; PCP Physician Assistant; Visit Provider Emergency Medicine
DX: R10.9 Unspecified abdominal pain (principal); Z87.891 Personal history of nicotine dependence; Z90.49 Acquired absence of other specified parts of digestive tract; Z90.710 Acquired absence of both cervix and uterus; J45.909 Unspecified asthma, uncomplicated; K21.9 Gastro-esophageal reflux disease without esophagitis
CPT/HCPCS: 80053; 81001; 83690; 85025; 96360; 96361; 96372; 99283; A4216